=== PATIENT | male | born 1955 | race Native Hawaiian/Other Pacific Islander ===

== ENCOUNTER 2020-03-06 12:01 | Inpatient (IN) | payer BC ==
[~2020-03-06] VITALS: Ht 160 cm; Wt 52.2 kg
[2020-03-06 12:05] VITALS: BP 117/70; TEMP 100
[2020-03-06 12:33] LABS: PLATELET COUNT 432 K/uL (142-355)
[2020-03-06 12:42] LABS: POTASSIUM 4.1 mmol/L (3.6-5.2)
[2020-03-06 16:24] VITALS: BP 122/71; TEMP 99.3; Ht 160 cm; Wt 52.2 kg
[2020-03-06 19:54] VITALS: BP 102/58; TEMP 98.6
[2020-03-07] VITALS: BP 101/60; TEMP 98.8
[2020-03-07 04:26] VITALS: BP 105/57; TEMP 98.1
[2020-03-07 05:43] LABS: PLATELET COUNT 361 K/uL (142-355)
[2020-03-07 06:04] LABS: POTASSIUM 3.7 mmol/L (3.6-5.2)
[2020-03-07 08:00] VITALS: BP 108/56; TEMP 97.8
[2020-03-07 12:00] VITALS: BP 108/50; TEMP 98.4
[2020-03-07 16:00] VITALS: BP 101/47; TEMP 97.9
[2020-03-07 23:56] VITALS: BP 110/57; TEMP 97.9
[2020-03-08 04:09] VITALS: BP 77/41; TEMP 98.1
[2020-03-08 07:00] LABS: PLATELET COUNT 328 K/uL (142-355)
[2020-03-08 07:32] LABS: POTASSIUM 3.9 mmol/L (3.6-5.2)
[2020-03-08 08:00] VITALS: BP 104/54; TEMP 98.4
[2020-03-08 12:00] VITALS: BP 97/48; TEMP 97.9
[2020-03-08 16:00] VITALS: BP 112/59; TEMP 97.9
[2020-03-08 20:00] VITALS: BP 112/63; TEMP 97.9
[2020-03-09] VITALS: BP 101/52; TEMP 97.8
[2020-03-09 04:00] VITALS: BP 123/66; TEMP 97.7
[2020-03-09 08:53] VITALS: BP 114/57; TEMP 98.4
[2020-03-09 16:58] VITALS: BP 109/64; TEMP 97.7
[2020-03-09 20:47] VITALS: BP 124/72; TEMP 98.2
[2020-03-10] VITALS: BP 128/74; TEMP 97.7
[2020-03-10 04:00] VITALS: BP 136/79; TEMP 97.7
[2020-03-10 08:34] VITALS: BP 126/78; TEMP 98.7
== END 2020-03-10 13:10 | disposition home or self-care (01) | DRG 189 ==
LOC: ED 12:01 → MED/SURG 14:40
PROVIDERS: Internal Medicine Endocrinology, Diabetes & Metabolism; ADMIT Family Medicine
DX: J96.01 Acute respiratory failure with hypoxia (principal); J18.8 Other pneumonia, unspecified organism; R04.2 Hemoptysis; J44.1 Chronic obstructive pulmonary disease with (acute) exacerbation; E78.49 Other hyperlipidemia; D47.3 Essential (hemorrhagic) thrombocythemia
CPT/HCPCS: 36415; 36600; 80048; 80053; 82805; 83605; 85027; 87040; 87070; 87205; 94640; 94664; 94760; 96360; 96361; 96365; 96366; 96368; 99284; J0696; J1956; J2920; Q9963

== ENCOUNTER 2020-03-16 09:06 | Outpatient (CLI) | payer BC ==
[2020-03-16 09:58] LABS: PLATELET COUNT 481 K/uL (142-355)
== END 2020-03-16 19:07 | disposition home or self-care (01) ==
LOC: LABW 09:06
PROVIDERS: Nurse Practitioner
DX: J43.2 Centrilobular emphysema (principal)
CPT/HCPCS: 36415; 80061; 82306; 82607; 82728; 82746; 84443; 85007; 85027

== ENCOUNTER 2020-03-22 13:53 | Outpatient (CLI) | payer BC | END 2020-03-22 21:47 | disposition home or self-care (01) | LOC: RESP 13:53 | DX: R06.00 Dyspnea, unspecified (principal) ==

== ENCOUNTER 2020-05-02 10:06 | Outpatient (CLI) | payer BC | END 2020-05-02 21:23 | disposition home or self-care (01) | LOC: CT 10:06 | DX: R91.1 Solitary pulmonary nodule (principal) ==

== ENCOUNTER 2020-07-12 10:56 | Day surgery (SDC) | payer BC ==
[2020-07-10 15:44] LABS: PLATELET COUNT 355 K/uL (142-355)
[2020-07-10 15:49] LABS: POTASSIUM 3.8 mmol/L (3.6-5.2)
[~2020-07-12] VITALS: Ht 30.5 cm; Wt 0.5 kg
== END 2020-07-12 13:40 | disposition home or self-care (01) ==
LOC: OR 10:56
PROVIDERS: Internal Medicine Gastroenterology
PROC: 0DJD8ZZ Inspection of Lower Intestinal Tract, Via Natural or Artificial Opening Endoscopic (ICD-10-PCS; principal; 2020-07-12)
DX: K57.30 Diverticulosis of large intestine without perforation or abscess without bleeding (principal); K64.8 Other hemorrhoids; Z12.11 Encounter for screening for malignant neoplasm of colon
CPT/HCPCS: 80053; 85027; J2001; J2704; J7120

== ENCOUNTER 2020-08-16 07:35 | Outpatient (CLI) | payer BC | END 2020-08-16 19:42 | disposition home or self-care (01) | LOC: CT 07:35 | PROVIDERS: ATTEND Nurse Practitioner | DX: R91.1 Solitary pulmonary nodule (principal) | CPT/HCPCS: 36415; 82565; 84520; Q9963 ==

== ENCOUNTER 2021-06-02 18:00 | Emergency (ER) | payer OTHER ==
[~2021-06-02] VITALS: Ht 160 cm; Wt 52.6 kg
[2021-06-02 19:21] LABS: PLATELET COUNT 277 K/uL (142-355)
[2021-06-02 19:29] LABS: POTASSIUM 3.9 mmol/L (3.6-5.2); SODIUM 137 mmol/L (136-145)
[2021-06-02 19:51] LABS: PARTIAL THROMBOPLASTIN TIME 23.6 SECONDS (24.5-33.6)
[2021-06-02 23:05] VITALS: BP 157/92; TEMP 98.5
== END 2021-06-02 23:19 | disposition home or self-care (01) ==
LOC: ED 18:00
PROVIDERS: Family Medicine
DX: F10.10 Alcohol abuse, uncomplicated (principal); J18.9 Pneumonia, unspecified organism; I10 Essential (primary) hypertension; Z20.822 Contact with and (suspected) exposure to COVID-19
CPT/HCPCS: 36415; 80053; 80320; 82550; 84484; 85027; 85610; 85730; 87635; 93005; 99283; U0003

== ENCOUNTER 2022-05-08 08:36 | Inpatient (IN) | payer OTHER ==
[2022-05-08] VITALS (9 sets, daily range): BP systolic 116–173; BP diastolic 44–88; TEMP 98.2–99.2; Ht 160 cm; Wt 53.3 kg
[~2022-05-08] VITALS: Ht 160 cm; Wt 53.3 kg
[2022-05-08 08:51] LABS: PLATELET COUNT 287 K/uL (142-355)
[2022-05-08 08:57] LABS: POTASSIUM 4.2 mmol/L (3.6-5.2)
[2022-05-08] MEDS ORDERED: LIPITOR20 MG PO (15:15)
[2022-05-08] MEDS ORDERED: IPRATROPIUM/ INH (15:15)
[2022-05-08] MEDS ORDERED: OMEPRAZOLE DR20 MG PO (15:16)
[2022-05-08] MEDS ORDERED: MONTELUKAST SOD10 MG PO (15:16)
[2022-05-09] VITALS: BP 106/67; TEMP 98.1
[2022-05-09 04:00] VITALS: BP 113/63; TEMP 98.1
[2022-05-09 05:01] LABS: PLATELET COUNT 275 K/uL (142-355)
[2022-05-09 05:22] LABS: POTASSIUM 3.3 mmol/L (3.6-5.2)
[2022-05-09 08:00] VITALS: BP 111/64; TEMP 98.1
[2022-05-09 12:00] VITALS: BP 102/59; TEMP 98.3
[2022-05-09 16:00] VITALS: BP 105/63; TEMP 98.7
[2022-05-09 20:00] VITALS: BP 119/68; TEMP 98.5
[2022-05-10] VITALS: BP 116/67; TEMP 98.3
[2022-05-10 04:00] VITALS: BP 126/80; TEMP 98.3
[2022-05-10 08:00] VITALS: BP 131/85; TEMP 98.1
[2022-05-10 12:00] VITALS: BP 130/77; TEMP 97.6
[2022-05-10 12:25] LABS: PLATELET COUNT 331 K/uL (142-355)
[2022-05-10 12:32] LABS: POTASSIUM 3.6 mmol/L (3.6-5.2)
[2022-05-10 20:00] VITALS: BP 117/69; TEMP 98.6
[2022-05-11] VITALS: BP 115/71; TEMP 98.5
[2022-05-11 04:00] VITALS: BP 126/77; TEMP 98.9
[2022-05-11 07:53] LABS: PLATELET COUNT 357 K/uL (142-355)
[2022-05-11 08:00] VITALS: BP 131/80; TEMP 97.8
[2022-05-11 08:07] LABS: POTASSIUM 3.8 mmol/L (3.6-5.2)
[2022-05-11 12:00] VITALS: BP 137/85; TEMP 98.1
[2022-05-11] MEDS ORDERED: MEGESTROL400 MG/10 PO (12:40)
[2022-05-11] MEDS ORDERED: SEROQUEL25 MG PO (12:41)
[2022-05-11] MEDS ORDERED: CEFD300C2 PO (12:41)
[2022-05-11] MEDS ORDERED: PRED20TA27 PO (12:42)
== END 2022-05-11 15:10 | disposition home or self-care (01) | DRG 189 ==
LOC: ED 08:36 → MED/SURG 12:30 → ED 12:30 → MED/SURG 12:31
PROVIDERS: ADMIT Emergency Medicine Emergency Medical Services; ATTEND Internal Medicine
DX: J96.21 Acute and chronic respiratory failure with hypoxia (principal); J18.8 Other pneumonia, unspecified organism; J44.0 Chronic obstructive pulmonary disease with (acute) lower respiratory infection; J44.1 Chronic obstructive pulmonary disease with (acute) exacerbation; R62.7 Adult failure to thrive; R00.0 Tachycardia, unspecified
CPT/HCPCS: 36415; 36600; 80048; 80053; 82805; 83605; 83735; 84145; 84484; 85027; 85379; 87040; 87070; 87205; 87502; 87635; 93005; 94664; 94760; 96360; 96361; 96365; 96375; 99284; J1956; J2930; J3490; Q9963; U0003

== ENCOUNTER 2022-05-14 10:14 | Observation (INO) | payer OTHER ==
[2022-05-14] VITALS (7 sets, daily range): BP systolic 110–173; BP diastolic 65–85; TEMP 97.8–98.6; Ht 157.5 cm; Wt 52.3 kg
[~2022-05-14] VITALS: Ht 157.5 cm; Wt 52.3 kg
[~2022-05-14 10:14] MED LIST: CEFD300C2 PO; IPRATROPIUM/ INH; LIPITOR20 MG PO; MEGESTROL400 MG/10 PO; MONTELUKAST SOD10 MG PO; OMEPRAZOLE DR20 MG PO; PRED20TA27 PO; SEROQUEL25 MG PO
[2022-05-14 10:38] LABS: PLATELET COUNT 536 K/uL (142-355)
[2022-05-14 10:48] LABS: POTASSIUM 3.4 mmol/L (3.6-5.2)
[2022-05-14 10:53] LABS: PARTIAL THROMBOPLASTIN TIME 23.6 SECONDS (24.5-33.6)
[2022-05-15] VITALS: BP 121/61; TEMP 98.4
[2022-05-15 04:00] VITALS: BP 114/70; TEMP 99
[2022-05-15 05:42] LABS: PLATELET COUNT 458 K/uL (142-355)
[2022-05-15 05:59] LABS: POTASSIUM 3.6 mmol/L (3.6-5.2)
[2022-05-15 10:20] VITALS: BP 116/51; TEMP 98.1
[2022-05-15 16:00] VITALS: BP 116/72; TEMP 98.1
[2022-05-15 20:00] VITALS: BP 130/82; TEMP 98.1
[2022-05-16 08:00] VITALS: BP 98/62; TEMP 97.8
[2022-05-16 12:00] VITALS: BP 112/69; TEMP 97.8
[2022-05-16] MEDS ORDERED: TEMA15CA19 PO (13:51)
[2022-05-16] MEDS ORDERED: AZIT250T3 PO (13:53)
[2022-05-16] MEDS ORDERED: PRED10TA27 PO (13:55)
== END 2022-05-16 18:30 | disposition home health service (06) ==
LOC: ED 10:14 → MED/SURG 11:42
PROVIDERS: Hospitalist; ADMIT Internal Medicine; ATTEND Internal Medicine
DX: J44.0 Chronic obstructive pulmonary disease with (acute) lower respiratory infection (principal); J18.8 Other pneumonia, unspecified organism; J44.1 Chronic obstructive pulmonary disease with (acute) exacerbation; J18.0 Bronchopneumonia, unspecified organism; E78.49 Other hyperlipidemia; K21.9 Gastro-esophageal reflux disease without esophagitis; F41.8 Other specified anxiety disorders; R62.7 Adult failure to thrive; J96.21 Acute and chronic respiratory failure with hypoxia; R06.02 Shortness of breath
CPT/HCPCS: 36415; 36600; 80053; 82550; 82805; 82948; 83605; 83880; 84484; 85027; 85379; 85610; 85730; 87040; 87635; 93005; 94664; 94760; 96365; 96367; 96372; 96374; 96375; 99220; 99284; G0378; J0456; J0696; J1650; J2930; J3370; U0003

== ENCOUNTER 2022-05-23 08:22 | Outpatient (CLI) | payer OTHER ==
[~2022-05-23 08:22] MED LIST changes: +AZIT250T3 PO; +PRED10TA27 PO; +TEMA15CA19 PO
== END 2022-05-23 21:18 | disposition home or self-care (01) ==
LOC: RESP 08:22
PROVIDERS: ATTEND Internal Medicine
DX: J18.9 Pneumonia, unspecified organism (principal); J44.9 Chronic obstructive pulmonary disease, unspecified

== ENCOUNTER 2022-05-28 13:23 | Outpatient (CLI) | payer OTHER | END 2022-05-28 19:02 | disposition home or self-care (01) | LOC: CT 13:23 | PROVIDERS: ATTEND Internal Medicine Sleep Medicine | DX: J18.9 Pneumonia, unspecified organism (principal) ==

== ENCOUNTER 2022-10-06 16:00 | Emergency (ER) | payer OTHER ==
[~2022-10-06] VITALS: Ht 157.5 cm; Wt 53.5 kg
[2022-10-06 16:03] VITALS: TEMP 100.2
[2022-10-06 17:17] LABS: POTASSIUM 3.9 mmol/L (3.6-5.2)
[2022-10-06 17:38] LABS: PLATELET COUNT 321 K/uL (142-355)
[2022-10-06 19:15] VITALS: BP 128/77
== END 2022-10-06 19:15 | disposition home or self-care (01) ==
LOC: ED 16:00
PROVIDERS: Internal Medicine
DX: J44.9 Chronic obstructive pulmonary disease, unspecified (principal); Z20.822 Contact with and (suspected) exposure to COVID-19
CPT/HCPCS: 80053; 85027; 87635; 94664; 96375; 99283; J2930; U0003

== ENCOUNTER 2023-01-17 09:16 | Outpatient (CLI) | payer OTHER | END 2023-01-17 19:15 | disposition home or self-care (01) | LOC: CT 09:16 | PROVIDERS: ATTEND Internal Medicine | DX: R09.02 Hypoxemia (principal) | CPT/HCPCS: 36415; 82565; 84520; Q9963 ==

== ENCOUNTER 2023-01-20 12:33 | Inpatient (IN) | payer OTHER ==
[~2023-01-20] VITALS: Ht 157.5 cm; Wt 51.4 kg
[2023-01-20 12:40] VITALS: BP 117/93; TEMP 98.2
[2023-01-20 13:06] VITALS: BP 122/76
[2023-01-20 13:53] LABS: PLATELET COUNT 318 K/uL (142-355)
[2023-01-20 14:00] LABS: POTASSIUM 3.5 mmol/L (3.6-5.2)
[2023-01-20 15:52] VITALS: BP 127/65
[2023-01-20 16:44] VITALS: BP 145/87; TEMP 97.9; Ht 157.5 cm; Wt 51.4 kg
[2023-01-20] MEDS ORDERED: QUET100T2 PO (17:37)
[2023-01-20] MEDS ORDERED: MULTIVITAMI1 PO (17:37)
[2023-01-20] MEDS ORDERED: POTASSIUM99 MG PO (17:38)
[2023-01-20] MEDS ORDERED: [UNRECOGNIZED DRUG - OTHER] PO (17:40)
[2023-01-20 20:08] VITALS: BP 127/76; TEMP 98.7
[2023-01-21] VITALS: BP 107/62; TEMP 98.6
[2023-01-21 04:00] VITALS: BP 104/57; TEMP 98.6
[2023-01-21 07:00] VITALS: BP 117/57; TEMP 97.5
[2023-01-21 12:00] VITALS: BP 112/59; TEMP 98.3
[2023-01-21 16:00] VITALS: BP 110/61; TEMP 98.4
[2023-01-21 20:00] VITALS: BP 112/67; TEMP 98.3
[2023-01-22] VITALS (7 sets, daily range): BP systolic 102–162; BP diastolic 53–88; TEMP 97.7–98.6
[2023-01-22 05:33] LABS: PLATELET COUNT 310 K/uL (142-355)
[2023-01-22 05:48] LABS: POTASSIUM 3.7 mmol/L (3.6-5.2)
[2023-01-23 03:49] VITALS: BP 129/79; TEMP 97.9
[2023-01-23 07:00] LABS: PLATELET COUNT 338 K/uL (142-355)
[2023-01-23 07:20] LABS: POTASSIUM 4.2 mmol/L (3.6-5.2)
[2023-01-23 08:00] VITALS: BP 136/82; TEMP 97.5
[2023-01-23 12:00] VITALS: BP 147/81; TEMP 98
== END 2023-01-23 15:45 | disposition home or self-care (01) | DRG 202 ==
LOC: ED 12:33 → MED/SURG 15:45
PROVIDERS: Internal Medicine; ADMIT Emergency Medicine Emergency Medical Services; ATTEND Internal Medicine
DX: J40 Bronchitis, not specified as acute or chronic (principal); J44.1 Chronic obstructive pulmonary disease with (acute) exacerbation; Z87.891 Personal history of nicotine dependence; R00.0 Tachycardia, unspecified; F10.10 Alcohol abuse, uncomplicated; E78.49 Other hyperlipidemia; F41.8 Other specified anxiety disorders
CPT/HCPCS: 36415; 36600; 80048; 80053; 82805; 83605; 83735; 84484; 85027; 87040; 87635; 93005; 94664; 94760; 96361; 96365; 96366; 96367; 96375; 99284; J0456; J0696; J1650; J2920; J2930; U0003

== ENCOUNTER 2023-07-19 14:06 | Observation (INO) | payer OTHER ==
[~2023-07-19] VITALS: Ht 160 cm; Wt 50.0 kg
[~2023-07-19 14:06] MED LIST changes: +MULTIVITAMI1 PO; +POTASSIUM99 MG PO; +QUET100T2 PO; +[UNRECOGNIZED DRUG - OTHER] PO
[2023-07-19 14:18] VITALS: BP 155/91; TEMP 98.5
[2023-07-19 14:29] LABS: PLATELET COUNT 312 K/uL (142-355)
[2023-07-19 14:36] LABS: POTASSIUM 4.4 mmol/L (3.6-5.2)
[2023-07-19 17:29] VITALS: BP 135/86; TEMP 97.9; Ht 160 cm; Wt 50.0 kg
[2023-07-19] MEDS ORDERED: IPRATROPIUM/ INH (17:48)
[2023-07-19] MEDS ORDERED: ZITHROMAX500 MG PO (17:49)
[2023-07-19] MEDS ORDERED: PRED10TA27 PO (17:49)
[2023-07-19 19:22] VITALS: BP 128/78; TEMP 97.8
[2023-07-20] VITALS: BP 103/63; TEMP 97.9
[2023-07-20 04:00] VITALS: BP 106/64; TEMP 98
[2023-07-20 04:42] LABS: PLATELET COUNT 273 K/uL (142-355)
[2023-07-20 04:43] LABS: POTASSIUM 4.1 mmol/L (3.6-5.2)
[2023-07-20 08:30] VITALS: BP 104/63; TEMP 98.6
[2023-07-20 12:04] VITALS: BP 98/55; TEMP 98.3
[2023-07-20 16:13] VITALS: BP 117/67; TEMP 98.2
[2023-07-20 20:00] VITALS: BP 101/65; TEMP 97.5
[2023-07-21] VITALS: BP 112/68; TEMP 98.4
[2023-07-21 04:00] VITALS: BP 96/57; TEMP 97.8
[2023-07-21 05:00] LABS: POTASSIUM 4.3 mmol/L (3.6-5.2)
[2023-07-21 08:32] VITALS: BP 100/53; TEMP 97.9
[2023-07-21 12:00] VITALS: BP 94/56; TEMP 98.2
== END 2023-07-21 15:30 | disposition home or self-care (01) ==
LOC: ED 14:06 → MED/SURG 15:29
PROVIDERS: Family Medicine; ADMIT Internal Medicine Endocrinology, Diabetes & Metabolism; ATTEND Internal Medicine Endocrinology, Diabetes & Metabolism
DX: J44.1 Chronic obstructive pulmonary disease with (acute) exacerbation (principal); Z99.81 Dependence on supplemental oxygen; J96.21 Acute and chronic respiratory failure with hypoxia; E78.49 Other hyperlipidemia; E87.1 Hypo-osmolality and hyponatremia; R00.0 Tachycardia, unspecified; F41.8 Other specified anxiety disorders; Z87.891 Personal history of nicotine dependence
CPT/HCPCS: 36415; 80048; 80053; 83880; 84484; 85027; 85379; 93005; 94664; 94760; 96366; 96367; 96374; 96375; 96376; 99221; 99284; G0378; J0456; J0696; J1650; J2920; J2930